=== PATIENT | male | born 1960 | race Caucasian/White ===

== ENCOUNTER 2016-11-14 16:54 | Emergency (ER) | payer OTHER ==
[2016-11-14 17:30] VITALS: BP 136/91
--- NOTE | 2016-11-14 17:42 | UC ---
Skin Complaint HPI - HPI Summary HPI Summary: The patient comes in today for: 1. Left facial swelling: Onset: Since this morning. Palliative/provocative: Eating does not affect it. No pain. Quality: Swelling. Region: Left check. Severity: 0/10 Time: Constant. Associated symptoms: Previous problem: He states he was seen in 2012. He thinks that the diagnosis was parotiditis and was treated with cephalexin. Pain: He has no pain in this area. Fevers: None. Previous treatment: See above. He states that this problem which he had before did go away with treatment. * - History of Current Complaint Chief Complaint: UCGeneralIllness Time Seen by Provider: 11/14/16 17:36 Stated Complaint: FACIAL SWELLING Hx Obtained From: Patient - Allergy/Home Medications Allergies/Adverse Reactions: Allergies Allergy/AdvReac Type Severity Reaction Status Date / Time No Known Allergies Allergy Verified 09/28/12 17:17 Review of Systems Constitutional: Negative Skin: Negative Eyes: Negative ENT: Negative Respiratory: Negative Cardiovascular: Negative Gastrointestinal: Negative Genitourinary: Negative All Other Systems Reviewed And Are Negative: Yes PMH/Surg Hx/FS Hx/Imm Hx Previously Healthy: No Endocrine History Of: Denies: Diabetes, Thyroid Disease, Hyperthyroidism, Hypothyroidism, Dyslipidemia Cardiovascular History Of: Denies: Cardiac Disorders, Hypertension, Pacemaker/ICD, Myocardial Infarction , Congestive Heart Failure, Atrial Fibrillation, Deep Vein Thrombosis, Bleeding Disorders Respiratory History Of: Denies: COPD, Asthma, Bronchitis, Pneumonia, Pulmonary Embolism GI/ History Of: Denies: Gastroesophageal Reflux, Ulcer, Gastrointestinal Bleed, Gall Bladder Disease, Kidney Stones, Diverticulitis, Renal Disease, Urosepsis Neurological History Of: Denies: TIA, CVA, Dementia, Seizures, Migraine Psychological History Of: Denies: Anxiety, Depression, Bipolar Disorder, Schizophrenia, Post Traumatic Stress Disorder Cancer History Of: Denies: Lung Cancer, Colorectal Cancer, Breast Cancer, Prostate Cancer, Cervical Cancer Other History Of: Negative For: HIV, Hepatitis B, Hepatitis C, Anticoagulant Therapy - Surgical History Surgical History: Yes Surgery Procedure, Year, and Place: bilat ankle surgeries; wisdom teeth extracted - Family History Known Family History: Positive: Hypertension Negative: Cardiac Disease - Social History Occupation: Unemployed Alcohol Use: Weekly Substance Use Type: None Smoking Status (MU): Former Smoker Type: Cigars Amount Used/How Often: occasional cigar Have You Smoked in the Last Year: No Physical Exam Triage Information Reviewed: Yes Appearance: Well-Appearing, No Pain Distress, Well-Nourished Vital Signs: Initial Vital Signs Temp 98.0 F 11/14/16 17:24 Pulse 88 11/14/16 17:24 Resp 18 11/14/16 17:24 BP 136/91 11/14/16 17:24 Pulse Ox 95 11/14/16 17:24 Vital Signs Reviewed: Yes Eyes: Positive: Conjunctiva Clear. Negative: Discharge ENT: Positive: Hearing grossly normal, Other: - Face: The patient has slight prominence of the pre-auricular area on the left and slightly inferior to the mandible. There was no induration but tenderness was mildly present to palpation. No distinct masses. No marked lymphadenopathy.. Negative: Pharyngeal erythema, Nasal congestion, Nasal drainage, TM bulging, TM dull, TM red, Tonsillar swelling, Tonsillar exudate Dental: Negative: Gross Decay/Caries @, Dental Fracture @ Neck: Positive: Supple, Nontender, No Lymphadenopathy. Negative: Nuchal Rigidity Respiratory: Positive: Lungs clear, No respiratory distress, No accessory muscle use. Negative: Crackles, Wheezing Cardiovascular: Positive: RRR, No Murmur Abdomen Description: Positive: Nontender, No Organomegaly, Soft. Negative: Distended, Guarding Musculoskeletal: Positive: Strength Intact, ROM Intact Neurological: Positive: Alert, Muscle Tone Normal Psychological: Positive: Age Appropriate Behavior, Consolable Skin: Negative: rashes, breakdown Course/Dx - Course Course Of Treatment: Patient told of my diagnosis of bacterial parotiditis and suggested a follow up with ENT. However, he said that he would consider the ENT referral, but would definitely take the antibiotic. - Diagnoses Provider Diagnoses: Left bacterial (mild) parotiditis Discharge - Discharge Plan Condition: Stable Disposition: HOME Patient Education Materials: Parotid Duct Obstruction (ED) Referrals: Claire Cuadra MD [Primary Care Provider] - Chema Nolasco MD [Medical Doctor] - 1 Day (Please call Dr. Nolasco's office tomorrow for a follow-up appointment. If you get worse between now and then, please be seen sooner by your primary care provider, the ER or us.)
== END 2016-11-14 18:14 | disposition home or self-care (01) ==
LOC: UCEAST 16:54
DX: K11.20 Sialoadenitis, unspecified (principal); Z72.0 Tobacco use
CPT/HCPCS: 99212; G0463

== ENCOUNTER 2022-03-24 15:26 | Observation (INO) ==
[2022-03-24] MEDS ORDERED: NS 0.9% 1000 ml BAG 1,000 ML IV ONE (17:14)
[2022-03-24 17:39] LABS: ABS Lymphocytes 1.5 10^3/ul (1.0-4.8); ABS Monocytes 1.2 10^3/ul (0-0.8); ABS Neutrophils 9.1 10^3/ul (1.5-7.7); Eosinophil % 0.1 %; Hematocrit 47 % (42-52); Lymphocyte % 12.7 %; Mean Corpuscular HGB Conc 34 g/dL (31-36); Mean Corpuscular Hemoglobin 30 pg (27-31); Mean Corpuscular Volume 88 fL (80-94); Mean Platelet Volume 8.5 fL (7.4-10.4); Nucleated Red Blood Cells % 0.1; Platelet Count 237 10^3/uL (150-450); Red Blood Count 5.33 10^6 /uL (4.18-5.48); Red Cell Distribution Width 14 % (10-15); White Blood Count 11.8 10^3/uL (3.5-10.8)
[2022-03-24 18:07] LABS: Urine Appearance Cloudy; Urine Bilirubin Negative (Negative); Urine Blood Negative (Negative); Urine Color Amber; Urine Glucose 1+(50 mg/dL) (Negative); Urine Ketones Trace (Negative); Urine Nitrite Negative (Negative); Urine Protein 2+(100 mg/dL) (Negative); Urine Specific Gravity 1.031 (1.002-1.030); Urine Urobilinogen Negative (Negative)
[2022-03-24 18:12] LABS: Urine Bacteria Absent (Absent); Urine Red Blood Cell Absent (Absent); Urine White Blood Cell Absent (Absent)
[2022-03-24 18:27] LABS: Albumin 4.1 g/dL (3.2-5.2); Albumin/Globulin Ratio 1.4 (1-3); C Reactive Protein 114.3 mg/L (<8.01); Calcium 8.7 mg/dL (8.6-10.3); Globulin 2.9 g/dL (2-4); Potassium 4.1 mmol/L (3.5-5.0); eGFR CKD-EPI 78.1 (>60)
[2022-03-24 19:17] LABS: Total Bilirubin 1.7 mg/dL (0.2-1.0)
[2022-03-24] MEDS ORDERED: Ondansetron 4 mg VIAL 2 MG/ML 2 ml VIAL IV PRN (22:47)
[2022-03-24] MEDS ORDERED: D5W 1/2 NS 40 Meq KCL 1000 ml 1,000 ML IV SCH (23:00)
[2022-03-24] MEDS ORDERED: HYDROmorphone 0.5 MG/0.5 ML SYRINGE IV SLOW PU PRN (23:29)
[2022-03-24] MEDS ORDERED: Zosyn 3.375 GM IV - ED ONCE IV ONE (23:30)
[2022-03-25] MEDS ORDERED: Piperacillin/Tazobactam VIAL 3.375 GM in NS 0.9% 100 ml BAG 100 ML IVPB SCH (03:30)
[2022-03-25 05:39] LABS: ABS Eosinophils 0.2 10^3/ul (0-0.6); ABS Lymphocytes 2.1 10^3/ul (1.0-4.8); ABS Monocytes 0.9 10^3/ul (0-0.8); Eosinophil % 2.1 %; Hematocrit 40 % (42-52); Mean Corpuscular HGB Conc 35 g/dL (31-36); Mean Corpuscular Hemoglobin 31 pg (27-31); Mean Corpuscular Volume 88 fL (80-94); Mean Platelet Volume 8.2 fL (7.4-10.4); Platelet Count 200 10^3/uL (150-450); Red Blood Count 4.57 10^6 /uL (4.18-5.48); Red Cell Distribution Width 14 % (10-15); White Blood Count 8.2 10^3/uL (3.5-10.8)
[2022-03-25 06:06] LABS: Albumin 3.4 g/dL (3.2-5.2); Albumin/Globulin Ratio 1.4 (1-3); Globulin 2.4 g/dL (2-4); Potassium 3.9 mmol/L (3.5-5.0); Total Bilirubin 1.5 mg/dL (0.2-1.0); Total Protein 5.8 g/dL (6.4-8.9); eGFR CKD-EPI 81.7 (>60)
[2022-03-25] MEDS ORDERED: Iohexol 180 (CONTRAST) 20 ML SDV IV ONE (09:48)
[2022-03-25] MEDS ORDERED: Bupivacaine 0.25% SDV 30 ML ONE (09:48)
[2022-03-25] MEDS ORDERED: Propofol 10 MG/ML 20 ML BTL ONE ×2 (10:19→12:11)
[2022-03-25] MEDS ORDERED: Rocuronium 50 mg VIAL 10 mg/ml 5 ml VIAL (50 mg) ONE (10:19)
[2022-03-25] MEDS ORDERED: Lidocaine 2% PF 5 ML VIAL ONE (10:19)
[2022-03-25] MEDS ORDERED: Dexamethasone IV 4 MG/ML VIAL 1 ml VIAL ONE (10:19)
[2022-03-25] MEDS ORDERED: HYDROmorphone 0.5 MG/0.5 ML SYRINGE ONE ×2 (10:19→11:52)
[2022-03-25] MEDS ORDERED: Ondansetron 4 mg VIAL 2 MG/ML 2 ml VIAL ONE (10:19)
[2022-03-25] MEDS ORDERED: ceFAZolin 2 GM PREMIX 2 GM/50 ML BAG ONE (10:58)
[2022-03-25] MEDS ORDERED: Naloxone 0.4 mg VIAL 0.4 mg/ml 1 ml VIAL IV PRN (12:25)
[2022-03-25] MEDS ORDERED: HYDROmorphone 1 MG/1 ML SYRINGE IV PRN (12:25)
[2022-03-25] MEDS ORDERED: Haloperidol 5 mg/ml SDV IV/IM 5 MG/ML AMP ONE (13:21)
[2022-03-25] MEDS ORDERED: Haloperidol 5 mg/ml SDV IV/IM 5 MG/ML AMP IV SLOW PU ONE (13:22)
[2022-03-25 17:01] VITALS: BP 144/95
== END 2022-03-25 15:00 | disposition home or self-care (01) ==
LOC: ED 15:26 → EDHOLD 15:26 → SSU 03-25 00:36
PROVIDERS: ADMIT Surgery; ATTEND Surgery

== ENCOUNTER 2024-08-13 08:26 | Inpatient (IN) ==
[2024-08-13 09:42] LABS: Hemoglobin 5.3 g/dL (13.2-16.3)
[2024-08-13 09:44] LABS: INR 1.74 (0.85-1.14)
[2024-08-13 09:49] LABS: Hematocrit 17.3 % (38-53); Mean Corpuscular Hemoglobin 33.4 pg (27-33); Mean Corpuscular Hgb Conc 30.6 g/dL (31-36); Mean Corpuscular Volume 109.3 fL (80-97); Red Blood Count 1.58 10^6/uL (4.06-5.63); Red Cell Distribution Width 36.8 % (12-17)
[2024-08-13] MEDS ORDERED: Pantoprazole 80 mg in NS BAG 80 MG/250 ML BAG IV ONE (09:57)
[2024-08-13 09:58] LABS: High Sens Troponin Baseline 1009 pg/mL (<20)
[2024-08-13 10:35] LABS: ALT 43 U/L (7-52); Albumin 3.4 g/dL (3.2-5.2); Albumin/Globulin Ratio 1.2 (1-3); Alkaline Phosphatase 1016 U/L (35-149); Anion Gap 22 mmol/L (2-16); Blood Urea Nitrogen 42 mg/dL (6-24); C Reactive Protein 48.77 mg/L (<8.01); CO2 Carbon Dioxide 15 mmol/L (22-32); Chloride 99 mmol/L (101-111); Creatinine, Serum 1.37 mg/dL (0.67-1.17); Globulin 2.8 g/dL (2-4); Glucose 301 mg/dL (70-100); Mean Platelet Volume 7.9 fL (7.5-11.2); Platelet Count 30 10^3/uL (150-450); Sodium 136 mmol/L (135-145); Total Bilirubin 4.5 mg/dL (0.2-1.0); Total Protein 6.2 g/dL (6.4-8.9)
[2024-08-13 10:44] LABS: White Blood Count 23.5 10^3/uL (3.6-10.2)
[2024-08-13 10:56] LABS: Anisocytosis 3+
[2024-08-13 10:57] LABS: ABS Lymphocytes 6.1 10^3/ul (1.0-4.8); ABS Monocytes 0.5 10^3/ul (0.0-1.1); ABS Neutrophils 16.9 10^3/ul (1.5-7.6); Hypochromasia 1+; Polychromasia 3+; Schistocytes 2+
[2024-08-13] MEDS: Lactated Ringers 1000 ml BAG 1,000 ML IV ONE (11:01)
[2024-08-13 11:07] LABS: High Sensitivity Troponin 1 Hr 890 pg/mL (<20)
[2024-08-13] MEDS ORDERED: Vancomycin 1,000 MG in NS 0.9% 250 ml 250 ML IVPB SCH (12:00)
[2024-08-13] MEDS: Pantoprazole VIAL 40 MG VIAL IV ONE (12:02)
[2024-08-13] MEDS: Pantoprazole 80 mg IN NS 80 MG/250 ML BAG IV ONE (12:02)
[2024-08-13] MEDS: Piperacillin/Tazobac 3.375 BAG 3.375 GM/100 ML BAG IV ONE (12:44)
[2024-08-13] MEDS: Vancomycin 1000 MG in NS 0.9% 250 ML IVPB ONE (13:49)
[2024-08-13 14:05] LABS: Potassium, Whole Blood 3.7 mmol/L (3.4-4.5)
[2024-08-13 15:21] LABS: Potassium Redraw 3.4 mmol/L (3.5-5.0)
[2024-08-13 17:02] LABS: High Sensitivity Troponin 3 Hr 1410 pg/mL (<20)
[2024-08-13 17:18] LABS: Urine Appearance Turbid; Urine Bilirubin Negative (Negative); Urine Blood 2+ (Negative); Urine Color Yellow; Urine Glucose Negative (Negative); Urine Ketones Negative (Negative); Urine Nitrite Negative (Negative); Urine Protein 1+ (>=30 mg/dL) (Negative); Urine Specific Gravity 1.019 (1.002-1.030); Urine Urobilinogen 1+ (Negative)
[2024-08-13 17:28] LABS: Hematocrit 18.9 % (38-53); Hemoglobin 6.4 g/dL (13.2-16.3)
[2024-08-13 17:42] LABS: Urine Bacteria 1+ /HPF (Absent); Urine Granular Casts Present /LPF (Absent); Urine Red Blood Cell 1+(3-5/hpf) /HPF (0-Trace); Urine White Blood Cell Trace(0-5/hpf) /HPF (0-Trace)
[2024-08-13] MEDS: Iodixanol 320 (CONTRAST) 100 ML SDV IV ONE (19:16)
[2024-08-13] MEDS: Morphine 4 MG/ML VIAL (1 ml) IV ONE (20:16)
[2024-08-13 22:03] LABS: Mean Platelet Volume 9.7 fL (7.5-11.2); Platelet Count 12 10^3/uL (150-450)
[2024-08-13] MEDS ORDERED: HYDROcodone/ACETAMIN 5/325 mg TAB PO PRN (22:17)
[2024-08-13 22:18] LABS: Hematocrit 19.7 % (38-53); Hemoglobin 6.8 g/dL (13.2-16.3)
[2024-08-13] MEDS: Pantoprazole 80 mg in NS BAG 80 MG/250 ML BAG IV SCH (23:08)
[2024-08-14] MEDS: Morphine 2 MG/ML SYRINGE IV PRN (02:29)
[2024-08-14 03:14] LABS: Platelet Count 48 10^3/ul (150-450)
[2024-08-14 03:23] LABS: Mean Platelet Volume 8.4 fL (7.5-11.2); Platelet Count 43 10^3/uL (150-450)
[2024-08-14 03:24] LABS: Hematocrit 19.5 % (38-53); Hemoglobin 6.7 g/dL (13.2-16.3); Mean Corpuscular Hemoglobin 30.8 pg (27-33); Mean Corpuscular Hgb Conc 34.5 g/dL (31-36); Mean Corpuscular Volume 89.5 fL (80-97); Red Blood Count 2.18 10^6/uL (4.06-5.63); Red Cell Distribution Width 17.9 % (12-17)
[2024-08-14 03:26] LABS: Activated Partial Thrombo Time 26.8 seconds (26.0-38.0); INR 1.46 (0.85-1.14)
[2024-08-14 04:48] LABS: Schistocytes PRESENT
[2024-08-14] MEDS: HYDROmorphone 0.5 MG/0.5 ML SYRINGE IV SLOW PU PRN (05:43)
[2024-08-14 07:07] LABS: RBC Retic Count 2.18 10^6/ul (4.06-5.63)
[2024-08-14 07:08] LABS: Hematocrit for Retic CNT 19.5 % (38-53)
[2024-08-14 07:26] LABS: Ferritin 3410.6 ng/mL (24-336)
[2024-08-14 08:47] LABS: Hematocrit 22.7 % (38-53); Mean Corpuscular Hemoglobin 31.3 pg (27-33); Mean Corpuscular Hgb Conc 35.2 g/dL (31-36); Mean Corpuscular Volume 88.9 fL (80-97); Red Blood Count 2.55 10^6/uL (4.06-5.63); Red Cell Distribution Width 18.2 % (12-17); White Blood Count 9.6 10^3/uL (3.6-10.2)
[2024-08-14 09:11] LABS: ALT 39 U/L (7-52); Albumin 2.9 g/dL (3.2-5.2); Albumin/Globulin Ratio 1.4 (1-3); Alkaline Phosphatase 1129 U/L (35-149); Blood Urea Nitrogen 35 mg/dL (6-24); CO2 Carbon Dioxide 22 mmol/L (22-32); Calcium 8.2 mg/dL (8.6-10.3); Chloride 102 mmol/L (101-111); Creatinine, Serum 1.01 mg/dL (0.67-1.17); Globulin 2.1 g/dL (2-4); Glucose 89 mg/dL (70-100); Total Bilirubin 4.8 mg/dL (0.2-1.0); eGFR CKD-EPI 83.6 (>60)
[2024-08-14 09:24] LABS: Potassium, Whole Blood 3.7 mmol/L (3.4-4.5)
[2024-08-14 09:26] LABS: ABS Basophils 0.1 10^3/uL (0.0-0.1); ABS Eosinophils 0.1 10^3/uL (0.0-0.5); ABS Lymphocytes 2.4 10^3/uL (1.0-4.8); ABS Monocytes 0.5 10^3/uL (0.0-1.1); ABS Neutrophils 6.5 10^3/uL (1.5-7.6); ABS Nucleated RBC 8.64 10^3/ul; Anisocytosis 3+; Eosinophil % 1.3 %; Lymphocyte % 25.3 %; Mean Platelet Volume 8.3 fL (7.5-11.2); Nucleated Red Blood Cells % 89.8 %/100WBC (0.0-0.8); Platelet Count 37 10^3/uL (150-450); Polychromasia 3+
[2024-08-14 10:05] LABS: Anion Gap 12 mmol/L (2-16); Sodium 136 mmol/L (135-145)
[2024-08-14] MEDS: cefTRIAXone 1 gm/50 mL D5W 1 GM/50 ML BAG IV SCH (10:21)
[2024-08-14 14:56] LABS: Hematocrit 21.5 % (38-53); Hemoglobin 7.6 g/dL (13.2-16.3)
[2024-08-14 14:59] LABS: Urine Appearance Turbid; Urine Bilirubin Negative (Negative); Urine Blood 3+ (Negative); Urine Color Yellow; Urine Glucose Negative (Negative); Urine Ketones 1+ (Negative); Urine Nitrite Negative (Negative); Urine Protein 1+ (>=30 mg/dL) (Negative); Urine Specific Gravity 1.031 (1.002-1.030); Urine Urobilinogen 1+ (Negative); Urine pH 5.5 (5.0-8.0)
[2024-08-14 15:04] LABS: Urine Bacteria Absent /HPF (Absent); Urine Granular Casts Present /LPF (Absent); Urine Red Blood Cell 3+(>10/hpf) /HPF (0-Trace); Urine Sperm Present /HPF (Absent); Urine White Blood Cell Absent /HPF (0-Trace)
[2024-08-14 15:53] LABS: Platelet Count 36 10^3/ul (150-450); Schistocytes PRESENT
[2024-08-14 15:56] LABS: Activated Partial Thrombo Time 25.6 seconds (26.0-38.0); INR 1.22 (0.85-1.14)
[2024-08-14 19:47] LABS: Triglycerides 254 mg/dL
[2024-08-14] MEDS: Pantoprazole 80 mg in NS BAG 80 MG/250 ML BAG IV SCH (22:30)
[2024-08-15 00:46] LABS: Hematocrit 20.7 % (38-53); Hemoglobin 7.3 g/dL (13.2-16.3); Mean Corpuscular Hemoglobin 31.4 pg (27-33); Mean Corpuscular Hgb Conc 35.2 g/dL (31-36); Mean Corpuscular Volume 89.1 fL (80-97); Mean Platelet Volume 7.9 fL (7.5-11.2); Platelet Count 25 10^3/uL (150-450); Red Blood Count 2.32 10^6/uL (4.06-5.63); Red Cell Distribution Width 21.6 % (12-17); White Blood Count 7.5 10^3/uL (3.6-10.2)
[2024-08-15 00:49] LABS: ABS Basophils 0.1 10^3/uL (0.0-0.1); ABS Eosinophils 0.1 10^3/uL (0.0-0.5); ABS Lymphocytes 1.8 10^3/uL (1.0-4.8); ABS Monocytes 0.4 10^3/uL (0.0-1.1); ABS Neutrophils 5.1 10^3/uL (1.5-7.6); ABS Nucleated RBC 7.61 10^3/ul; Eosinophil % 1.5 %; Lymphocyte % 24.2 %; Nucleated Red Blood Cells % 101.4 %/100WBC (0.0-0.8)
[2024-08-15 00:50] LABS: Anisocytosis 3+; Polychromasia 3+; Schistocytes 3+
[2024-08-15 07:37] LABS: Potassium 3.8 mmol/L (3.5-5.0)
[2024-08-15 07:38] LABS: Calcium 8.1 mg/dL (8.6-10.3); Creatinine, Serum 0.87 mg/dL (0.67-1.17); Phosphorus 3.8 mg/dL (2.5-5.0)
[2024-08-15 08:33] LABS: Eosinophil % 1.1 %; Hematocrit 19.1 % (38-53); Hemoglobin 6.9 g/dL (13.2-16.3); Lymphocyte % 27.9 %; Mean Corpuscular Hemoglobin 31.9 pg (27-33); Mean Corpuscular Hgb Conc 36.3 g/dL (31-36); Mean Corpuscular Volume 88.1 fL (80-97); Mean Platelet Volume 6.9 fL (7.5-11.2); Nucleated Red Blood Cells % 119.4 %/100WBC (0.0-0.8); Platelet Count 22 10^3/uL (150-450); Red Blood Count 2.17 10^6/uL (4.06-5.63); Red Cell Distribution Width 23.9 % (12-17)
[2024-08-15 08:34] LABS: Anisocytosis 2+; Basophilic Stippling 2+; Polychromasia 2+; Schistocytes 2+
[2024-08-15 08:36] LABS: White Blood Count 3.9 10^3/uL (3.6-10.2)
[2024-08-15 08:37] LABS: ABS Lymphocytes 1.2 10^3/ul (1.0-4.8); ABS Monocytes 0.1 10^3/ul (0.0-1.1); ABS Neutrophils 2.5 10^3/ul (1.5-7.6)
[2024-08-15] MEDS: Acetaminophen IV 1 GM/100ML 1,000 MG/100 ML BAG IV SCH (10:05)
[2024-08-15 14:45] LABS: Hematocrit 22.8 % (38-53); Hemoglobin 8.1 g/dL (13.2-16.3)
[2024-08-15] MEDS: Pantoprazole 80 mg in NS BAG 80 MG/250 ML BAG IV SCH (20:51)
[2024-08-16 06:57] LABS: Blood Urea Nitrogen 30 mg/dL (6-24); CO2 Carbon Dioxide 33 mmol/L (22-32); Calcium 7.6 mg/dL (8.6-10.3); Chloride 102 mmol/L (101-111); Creatinine, Serum 0.84 mg/dL (0.67-1.17); Glucose 177 mg/dL (70-100); Magnesium 1.9 mg/dL (1.9-2.7); Sodium 134 mmol/L (135-145)
[2024-08-16 08:30] LABS: White Blood Count 5.5 10^3/uL (3.6-10.2)
[2024-08-16] MEDS: Magnesium Sulfate IV 1GM/100ML 1 GM/100 ML BAG IV ONE (08:30)
[2024-08-16 08:35] LABS: Hematocrit 19.3 % (38-53); Mean Corpuscular Hemoglobin 31.6 pg (27-33); Mean Corpuscular Hgb Conc 36.3 g/dL (31-36); Mean Corpuscular Volume 87.1 fL (80-97); Mean Platelet Volume 8.8 fL (7.5-11.2); Platelet Count 11 10^3/uL (150-450); Red Blood Count 2.21 10^6/uL (4.06-5.63); Red Cell Distribution Width 23.1 % (12-17)
[2024-08-16] MEDS ORDERED: HYDROmorphone 0.5 MG/0.5 ML SYRINGE IV PRN (09:49)
[2024-08-16] MEDS: Morphine ORAL.SOLN 10 mg 2 mg/ml UDC 5 ml (10 mg) PO SCH (10:59)
[2024-08-16] MEDS: Morphine 2 MG/ML SYRINGE IV PRN (17:47)
[2024-08-16 18:27] LABS: Activated Partial Thrombo Time 30.2 seconds (26.0-38.0); INR 1.36 (0.85-1.14)
[2024-08-16 19:13] LABS: Hematocrit 16.5 % (38-53); Mean Corpuscular Hemoglobin 31.9 pg (27-33); Mean Corpuscular Hgb Conc 36.3 g/dL (31-36); Red Blood Count 1.87 10^6/uL (4.06-5.63); Red Cell Distribution Width 32.8 % (12-17)
[2024-08-16 19:36] LABS: Mean Platelet Volume 8.1 fL (7.5-11.2); Platelet Count 29 10^3/uL (150-450)
[2024-08-16 19:39] LABS: White Blood Count 4.4 10^3/uL (3.6-10.2)
[2024-08-16] MEDS: HYDROmorphone 0.5 MG/0.5 ML SYRINGE IV PRN (20:12)
[2024-08-17] MEDS: Morphine 4 MG/ML VIAL (1 ml) IV PRN (04:15)
[2024-08-17] MEDS: Pantoprazole 80 mg in NS BAG 80 MG/250 ML BAG IV SCH (05:36)
[2024-08-17 08:13] LABS: White Blood Count 3.4 10^3/uL (3.6-10.2)
[2024-08-17 08:14] LABS: Hematocrit 19.3 % (38-53); Hemoglobin 6.9 g/dL (13.2-16.3); Mean Corpuscular Hemoglobin 30.6 pg (27-33); Mean Corpuscular Hgb Conc 35.8 g/dL (31-36); Mean Corpuscular Volume 85.4 fL (80-97); Mean Platelet Volume 8.3 fL (7.5-11.2); Platelet Count 23 10^3/uL (150-450); Red Blood Count 2.26 10^6/uL (4.06-5.63); Red Cell Distribution Width 20.9 % (12-17)
[2024-08-17 08:15] LABS: ABS Lymphocytes 1.4 10^3/uL (1.0-4.8); ABS Monocytes 0.3 10^3/uL (0.0-1.1); ABS Neutrophils 2.6 10^3/uL (1.5-7.6); ABS Nucleated RBC 1.17 10^3/ul; Anisocytosis 3+; Basophilic Stippling 1+; Eosinophil % 1.1 %; Lymphocyte % 32.6 %; Nucleated Red Blood Cells % 26.3 %/100WBC (0.0-0.8); Polychromasia 3+; Schistocytes 2+
[2024-08-17] MEDS: Acetaminophen IV 1 GM/100ML 1,000 MG/100 ML BAG IV PRN (10:36)
[2024-08-17] MEDS: Ondansetron 4 mg VIAL 2 MG/ML 2 ml VIAL IV PRN (13:02)
[2024-08-17 17:07] LABS: Hematocrit 21.9 % (38-53); Hemoglobin 7.9 g/dL (13.2-16.3)
[2024-08-18] MEDS: Vitamins A & D OINT TUBE TOPICAL PRN (02:34)
[2024-08-19] MEDS: Benzocaine/Menthol LOZ PO PRN (02:00)
[2024-08-19 10:23] VITALS: BP 151/82
[2024-08-19] MEDS ORDERED: LORazepam 2 mg VIAL 1 ml IV PUSH PRN (10:35)
[2024-08-19] MEDS ORDERED: Lorazepam PYXIS KEY PRN (10:35)
[2024-08-19] MEDS ORDERED: Polyethylene Glycol 3350 17 GM PACKET PO PRN (10:48)
[2024-08-19] MEDS ORDERED: Ondansetron 4 mg VIAL 2 MG/ML 2 ml VIAL IV PRN (10:48)
[2024-08-19] MEDS: Scopolamine 1 mg/72hr PATCH TRANSDERM SCH (11:05)
[2024-08-19] MEDS: LORazepam 2 mg VIAL 1 ml IV PUSH PRN ×2 (11:06→13:04)
[2024-08-19] MEDS: Morphine 2 MG/ML SYRINGE IV PRN ×2 (11:07→22:46)
== END 2024-08-20 04:28 | disposition expired | DRG 663 ==
LOC: ED 08:26 → EDHOLD 08:26 → MEDTELE 23:18 → MED 23:35 → ICU 08-14 05:11 → SUATTDRO 08-14 09:14 → MEDTELE 08-14 20:47
PROVIDERS: ADMIT Internal Medicine; ATTEND Hospitalist